=== PATIENT | male | born 1955 | race Caucasian/White ===

== ENCOUNTER 2017-09-06 10:50 | Day surgery (SDC) | payer OTHER ==
[~2017-09-06] VITALS: Ht 172.7 cm; Wt 93.5 kg
[2017-09-06] VITALS (8 sets, daily range): BP systolic 129–186; BP diastolic 71–93; PULSE 60–75; RESP 16–17; TEMP 98.2–99; O2SAT 94–98
[~2017-09-06 10:50] MED LIST: 1-ME1LIQ PO; LISI10TA PO; NAPR500 PO; TERA1 PO
[2017-09-06] MEDS ORDERED: IOHEXOL 350 MG/ML 100 ML BTL (for Cath Lab) OTHER ONE (10:51)
[2017-09-06] MEDS ORDERED: ASPIRIN 81 MG CHEW TAB PO SCH (11:30)
[2017-09-06] MEDS ORDERED: NS 1000P @30 MLS/HR (KVO) IV SCH (11:30)
[2017-09-06] MEDS ORDERED: TERA10CA3 PO (11:40)
[2017-09-06] MEDS ORDERED: MULTTAB27 PO (11:40)
[2017-09-06] MEDS ORDERED: FEXO15TA PO (11:40)
[2017-09-06] MEDS ORDERED: ASPI81TA11 PO (11:40)
[2017-09-06] MEDS ORDERED: LISI20TA3 PO (11:40)
[2017-09-06] MEDS ORDERED: AMLO10 PO (11:40)
[2017-09-06 11:51] LABS: AUTOMATED NEUTROPHIL # 2.9 TH/MM3 (1.8-7.7); BASOPHIL # 0.1 TH/MM3 (0-0.2); BASOPHIL % 1.8 % (0.0-2.0); EOSINOPHIL # 0.2 TH/MM3 (0-0.4); EOSINOPHIL % 2.8 % (0.0-4.0); HEMATOCRIT 44.9 % (39.0-51.0); HEMO FLAGS DIFF FINAL; LYMPH % 24.9 % (9.0-44.0); LYMPHOCYTE # 1.4 TH/MM3 (1.0-4.8); MEAN CELL VOLUME 88.3 FL (80.0-100.0); MEAN CORPUSCULAR HEMOGLOBIN 30.3 PG (27.0-34.0); MEAN CORPUSCULAR HGB CONC 34.3 % (32.0-36.0); MONO % 16.5 % (0.0-8.0); PLATELET COUNT 192 TH/MM3 (150-450); RED BLOOD COUNT 5.08 MIL/MM3 (4.50-5.90); RED CELL DISTRIBUTION WIDTH 13.7 % (11.6-17.2); WHITE BLOOD COUNT 5.4 TH/MM3 (4.0-11.0)
[2017-09-06 11:59] LABS: PROTHROMBIN TIME - PATIENT 11.3 SEC (9.8-11.6)
[2017-09-06 12:11] LABS: BICARBONATE 31.7 MEQ/L (21.0-32.0); POTASSIUM 3.1 MEQ/L (3.5-5.1)
[2017-09-06] MEDS ORDERED: MIDAZOLAM HCL 2 MG/2 ML VIAL ONE (12:21)
[2017-09-06] MEDS ORDERED: HEPARIN SODIUM - IV 10,000 UNITS/10 ML VIAL ONE (12:54)
[2017-09-06] MEDS ORDERED: CLOPIDOGREL 300 MG TAB ONE (13:05)
[2017-09-06] MEDS ORDERED: TIROFIBAN INFUSION INJ 250 ML IV ONE (13:06)
[2017-09-06] MEDS ORDERED: PRASUGREL 10 MG TAB ONE (13:12)
--- NOTE | 2017-09-06 13:27 | CATHPROC ---
[facility] HIS Report Study Information Study Number Admission Scheduled Start Study Start [id number] Sep 06 2017 10:50AM 09/06/2017 Sep 06 2017 12:15PM [place] [facility]iac Catheterization Admit Source Facility Department Other [facility] - Regional Marketing Manager Physician and Clinical Staff Initial Raul Lomeli Boilermaker Helper Kya Palencia BSRN Other cathlab, cathlab Recorder Deepa Groves,RN Recorder Minoo Little,RT(R) ScrCarol Hilario,RT(R) TECH2 Procedures Performed Procedure Location (Site) Vessel Name Coronary Angiograms LCA Left Coronary Coronary Angiograms RCA Right Coronary L Heart Cath LV Gram-hand inj. LV LV Ventricle Stent OM1 Prox CIRC Wire insertion Fem Art (right) Femoral Art Equipment Time Day Habilitation Supervisor Description Size Mfg Part Number Used/Scraped [id number] 12:55 [employer] WIRE, ASAHI PROWATER 180CM 180CM Used *[id number] TRANSDUCER, TRUWAVE [id number] 12:24 LEMUS CABAN * Used W/STOCKCOCK *[id number] [id number] *[id number] [id number] *[id number] *[id number] 12:24 MEDLINE [employer] PACK, CCL CUSTOM * Used *[id number] 12:24 [facility] PACER PEN, SKIN DUAL W/ RULER * Used *[id number] 13:01 MEDTRONIC BALLOON, 2.5 X 10MM EUPHORA 10MM Used *[id number] 13:04 MEDTRONIC STENT, 2.5 18 INTEGRITY 2.5 18 Used *[id number] 13:06 [employer] MEDICAL 30 NAZARIO INDEFLATOR Used *[id number] 12:56 [employer] MEDICAL SHEATH, FR6.5 PRELUDE 11CM FR 6.5 038ACT Used *[id number] 12:24 [employer] MEDICAL WIRE, 3MMJ .035 180CM 180CM Used *[id number] 12:24 NAMIC MANIFOLD, 4 PORT * Used *[id number] 12:24 [employer]COMED OMNIPAQUE, 350 MG, 150ML 150ML [id number] Used [id number] 12:24 [employer] BLANKET,WARM AIR CCL * Used *[id number] 12:24 TERUMO MEDICAL SHEATH, FR4 TERUMO (10CM) FR 4 Used *[id number] Equipment Model, Serial, Lot Number and Expiration Data Description Model Number Serial Number Lot Number Expiration Date STENT, 2.5 18 INTEGRITY [id number] 05-03-2019 History: Current Medications Medication Dosage/Unit Route Frequency Last Date/Time Taken NORVASC 10 mg Oral LISINOPRIL 20 mg Oral ASA 81 mg Oral History: Allergies Allergy Reaction No Known Allergies History: Risk Factors Family History of Hypertension Dyslipidemia Previous WI Previous Heart Failure Premature CAD Yes No Yes No No Prior Valve Prior PCI Prior CABG Surgery No No No Cerebrovascular Peripheral Artery Chronic Lung On Dialysis Diabetes Disease Disease Disease No No No No No History: Symptoms/Diagnosis Selection Items Chest pain History: Stress Tests Stress or Imaging Studies Performed Yes Standard Exercise Stress Test No Stress Echo No Stress Test SPECT Stress Test SPECT Result Stress Test SPECT Ischemia Risk/Extent Yes Positive Intermediate Stress Test CMR No Cardiac CTA Coronary Calcium Score No No History: Other Disease Selection Items Cancer HTN History: Other Current Smoker No Regular Diet Yes Labs Hgb (g/dl) Hct (%) WBC (l/cumm) Platelets (thousands) 11.60-17.00 35.00-51.00 4.00-11.00 150.00-450.00 15.4 44.9 5.4 192 Glucose (mg/dl) BUN (mg/dl) Creatinine (mg/dl) BUN:Creatinine (1:x) 74.00-106.00 7.00-18.00 0.50-1.30 10.00-20.00 117 8 0.9 8.9 Na (meq/l) K (meq/l) 136.00-145.00 3.50-5.10 138 3.1 INR (PTT:PT) 0.90-1.10 1 Troponin I (ng/ml) CPK-MB (ng/ML) 0.02-0.05 0.50-3.60 0.01 Not Drawn Medication Medication Total Dose (Bolus/Oral) Medication Total Dosage/Unit 1% XYLOCAINE 20 mL AGGRASTAT BOLUS 46.2 mL EFFIENT 60 mg HEPARIN 6500 units VERSED 1 mg Medications (Bolus/Oral) Medication Time Given Dosage/Unit Administered By Reason 09/06/2017 12:47:16 VERSED 1 mg Kya Palencia PM 1 mg VERSED given in lab by Kya Palencia BSRN in Left Antecubital via Peripheral IV. Ordered by Raul Giang. 09/06/2017 12:47:59 1% XYLOCAINE 20 mL Raul Giang PM 20 mL 1% XYLOCAINE given in lab by Raul Giang in Right Groin via Subcutaneous. 09/06/2017 12:56:41 HEPARIN 6500 units Kya Palencia PM 6500 units HEPARIN given in lab by Kya Palencia BSRN in Left Antecubital via Peripheral IV. Orde red by Raul Giang. AGGRASTAT BOLUS 09/06/2017 1:11:08 PM 46.2 mL Kya Palencia 46.2 mL AGGRASTAT BOLUS given in lab by Kya Palencia BSRN in Left Antecubital via Peripheral IV. Ordered by Raul Giang. EFFIENT 09/06/2017 1:16:43 PM 60 mg Kya Palencia 60 mg EFFIENT given in lab by Kya Palencia BSRN via Oral. Ordered by Raul Giang. Medication (Drip) Medication Time Given Dosage/Unit Concentration/Unit Diluent (ml) Solutio n AGGRASTAT DRIP 09/06/2017 1:15:36 PM 0.15 mcg/kg/min 12.5 mg 250 NaCl .9 0.15 mcg/kg/min AGGRASTAT DRIP given in lab by Kya Palencia BSRN in Left Antecubital via Periphe ral IV. Pump/Drip Flow = 16.6 ml/hr using NaCl .9 with a concentration of 12.5 mg in 250 ml. Ordered by Raul Giang. 09/06/2017 12:19:18 IV Solutions 0 mL (IV) 500 NaCl .9 PM Patient arrived on IV Solutions given by cathvictoriano cathvictoriano in Left Antecubital via Peripheral IV. Pump /Drip Flow = 20 ml/hr using NaCl .9. Ordered by Raul Giang. Initial Case Assessment Cardiovascular HR Rhythm NIBP Chest Pain 60 mayank 161/101 0 Edema Present Skin color Skin None Normal Warm Dry Circulatory - Right Pulses Dorsalis Pedis Posterior Tibial Femoral 2 2 3 Scale (0,1,2,3,4,d) Circulatory - Left Pulses Dorsalis Pedis Posterior Tibial Femoral 2 2 3 Scale (0,1,2,3,4,d) Circulatory - Lower Extremities Color Lower Right Color Lower Left Normal Normal Neurological State Oriented to time-place- Alert Moves all extremities person Respiration - General Respiration Rate SpO2 (%) (B/min) 14 99 Chronological Log Time Study Chronological Log 12:15:13 Patient arrived via Bed. 12:15:14 Patient Name, D.O.B, / Armband Verified By R.N. 12:15:15 Consent signed by the physician and the patient and verified by the Regional Marketing Manager staff. 12:19:10 Pre-op and post- op instructions given; patient acknowledges understanding of instructions. 12:19:11 Patient has been NPO for More than 6Hrs. 12:19:12 Skin Breakdown- mome per pt 12:19:15 Dea Prominences Protected 12:19:18 A # 20 IV was noted in the Antecubital (left). Grade = 0 0.9NS at KVO infusing Patient arrived on IV Solutions given by cathlab, cathlab in Left Antecubital via Peripheral IV . Pump/Drip Flow = 20 12:19:18 ml/hr using NaCl .9. Ordered by Raul Giang. 12:19:19 History and physical on the chart or being dictated. Vitals capture started with the following parameters, Patient=Adult, Interval=5 min, Initial Pr ubmzyd=300 mmHg, 12:19:51 Deflation Rate=5 mmHg, Cuff placed on Left Arm 12:20:28 HR=69 bpm, RCDP=711/101 mmhg, SpO2=99.0 %, Resp=14 B/min, Pain=0, Lobo=10, Wolff=2 Assessment: Initial Case, HR=60 BPM, Rhythm=mayank, AHUB=079/101 mmhg, Chest Pain=0, Edema=None, Color=Normal, Skin = Warm, Dry Right Pulses: Gonzales Ped=2, Post Tib=2, Femoral=3 Left Pulses: Gonzales Ped=2, Post Tib=2, Femoral=3 12:21:19 Lower Right Extremities: Color=Normal Lower Left Extremities: Color=Normal Neurological: State=Alert, Ox3, YEN Respiration: Resp=14 B/min, SpO2=99 % 12:22:00 Reference ECG taken 12:23:18 Verbal Stimulation=2 Physical Stimulation=2 Airway=2 Respiration=2 TOTAL=8. (0=absent, 1=li mited, 2=present) 12:24:58 Bilateral groins prepped with 2% chlorhexidine, and draped after a 3 minute waiting time. 12:26:06 HR=64 bpm, DXKF=721/93 mmhg, SpO2=97.0 %, Resp=9 B/min, Pain=0, Lobo=10, Wolff=2 12:30:33 HR=73 bpm, DEYR=733/99 mmhg, SpO2=98.0 %, Resp=15 B/min, Pain=0, Lobo=10, Wolff=2 12:35:36 HR=64 bpm, KVAN=896/90 mmhg, SpO2=98.0 %, Resp=13 B/min, Pain=0, Lobo=10, Wolff=2 12:36:08 Pressure channel 1 zeroed. 12:40:35 HR=61 bpm, KTAA=998/88 mmhg, SpO2=97.0 %, Resp=8 B/min 12:44:00 MD arrived. 12:45:34 HR=59 bpm, EYGK=065/95 mmhg, SpO2=98.0 %, Resp=10 B/min Time Out. Correct patient, correct procedure, correct physician, power injector loaded, or not loaded with contrast with 12:47:02 surgical team present. Time Out Concurred by MD and individual staff in procedure. 1 mg VERSED given in lab by Kya Palencia BSRN in Left Antecubital via Peripheral IV. Order ed by Padmaja, 12:47:16 Raul. 12:47:57 Case Start 12:47:59 20 mL 1% XYLOCAINE given in lab by Raul Giang in Right Groin via Subcutaneous. 12:48:30 Access site was Right Femoral Artery. 12:48:38 A SHEATH, FR4 TERUMO (10CM) FR 4 was advanced into the Fem Art (right) using the Percutaneo us technique. A JR 4.0 INFINITI CATHETER FR 4 was advanced over a wire. OMNIPAQUE, 350 MG, 150ML 150ML was us ed for 12:49:00 injections. Recorded Pressure: LV, HR=63, Condition=Condition 1 12:49:47 (Left Ventricle) LV 154/6/17 12:50:00 The LV was manually injected with 6 cc's and visualized. OMNIPAQUE, 350 MG, 150ML 150ML use d. Recorded Pressure: LV, Ao, HR=63, Condition=Condition 1 12:50:04 (Left Ventricle) LV 153/8/17, (Aorta) Ao 155/81/112 12:50:37 HR=62 bpm, UULP=967/85 mmhg, SpO2=97.0 %, Resp=8 B/min 12:50:57 The RCA was injected and visualized at various angles. OMNIPAQUE, 350 MG, 150ML 150ML used . 12:51:16 Catheter was removed A JL 4.0 INFINITI CATHETER FR 4 was advanced over a wire. OMNIPAQUE, 350 MG, 150ML 150ML was us ed for 12:51:18 injections. 12:52:18 The LCA was injected and visualized at various angles. OMNIPAQUE, 350 MG, 150ML 150ML used . 12:54:55 Catheter was removed 12:55:34 HR=67 bpm, YPNL=409/104 mmhg, SpO2=95.0 %, Resp=9 B/min 6500 units HEPARIN given in lab by Kya Palenica BSRN in Left Antecubital via Peripheral IV . Ordered by Padmaja, 12:56:41 Raul. A SHEATH, FR6.5 PRELUDE 11CM FR 6.5 was exchanged in the Fem Art (right). This was necessary in order to 12:57:00 accomodate a larger catheter. A XB 4.0 GUIDE CATHETER FR 6 was advanced over a wire. OMNIPAQUE, 350 MG, 150ML 150ML was used for 12:58:09 injections. 13:00:44 A WIRE, ASAHI PROWATER 180CM 180CM was inserted via Fem Art (right). 13:01:08 HR=65 bpm, SAKX=668/93 mmhg, SpO2=96.0 %, Resp=8 B/min 13:01:08 Interventional wire has crossed the lesion Recorded Pressure: Ao, HR=68, Condition=Condition 1 13:01:37 (Aorta) Ao 154/82/112 A BALLOON, 2.5 X 10MM EUPHORA 10MM was inserted over WIRE, ASAHI PROWATER 180CM 180CM via the F em Art 13:01:55 (right). 13:03:00 Activated Clotting Time Drawn 13:03:35 Balloon Removed, not inflated. An STENT, 2.5 18 INTEGRITY 2.5 18 Bare Metal Stent was inserted through a XB 4.0 GUIDE CATHETER FR 6 over a 13:04:27 WIRE, [employer] PROWATER 180CM 180CM. 13:05:36 HR=65 bpm, UDAE=221/90 mmhg, SpO2=95.0 %, Resp=9 B/min A STENT, 2.5 18 INTEGRITY 2.5 18 was deployed using a 30 NAZARIO INDEFLATOR at 10 atmospheres for 2 2 seconds in 13:05:49 the OM1 Prox. 13:07:24 Delivery device removed 13:07:59 Wire removed 13:08:03 Catheter was removed 13:08:29 ACT (Normal Range 90-180) = 307 13:08:54 Case End 13:10:41 HR=63 bpm, FNQC=456/89 mmhg, SpO2=97.0 %, Resp=7 B/min 46.2 mL AGGRASTAT BOLUS given in lab by Kya Palencia BSRN in Left Antecubital via Peripher al IV. Ordered by 13:11:08 Raul Giang. 13:14:42 In the Fem Art (right) the SHEATH, FR6.5 PRELUDE 11CM FR 6.[address] by Raul Tejada. 13:15:05 Sterile dressing applied to site 13:15:06 No case complications noted. 13:15:07 Cine recording checked. 13:15:11 Bedside Report will be given. 13:15:13 Implantable Device card placed in patient's chart. 13:15:15 Contrast Scanned 13:15:16 A Left Heart Cath was performed. 0.15 mcg/kg/min AGGRASTAT DRIP given in lab by Kya Palencia BSRN in Left Antecubital via P eripheral IV. 13:15:36 Pump/Drip Flow = 16.6 ml/hr using NaCl .9 with a concentration of 12.5 mg in 250 ml. Ordered by Raul Giang. 13:15:36 HR=58 bpm, RRAZ=373/92 mmhg, SpO2=97.0 %, Resp=7 B/min 13:16:43 60 mg EFFIENT given in lab by Kya Palencia BSRN via Oral. Ordered by Raul Giang. 13:20:37 AKZX=180/96 mmhg 13:21:36 Vitals capture stopped. 13:23:00 Patient moved to stretcher End Study - Contrast Media Used In Study Contrast Total Opened (mL) Total Used (mL) Total Wasted (mL) Omnipaque 90 0 90 End Study - Maximum Contrast Load Max Contrast Load (mL) 513.4 End Study - Radiation Exposure Fluoro Time (minutes) 4.3 End Study - Patient Disposition Complications Transferred To Interventional Outcome No Telemetry Bed successful
[2017-09-06] MEDS ORDERED: HEPARIN-NS/PF INJ 500 ML ONE (13:34)
[2017-09-06] MEDS ORDERED: TIROFIBAN INFUSION INJ 250 ML IV SCH (13:43)
[2017-09-06] MEDS ORDERED: MISC INFORMATION XX ONE (13:45)
[2017-09-06] MEDS ORDERED: PRASUGREL 10 MG TAB PO ONE (13:45)
[2017-09-06] MEDS ORDERED: SODIUM CHLORIDE 0.9% FLUSH 10 ML FLUSH IV FLUSH PRN (13:45)
--- NOTE | 2017-09-06 14:17 | MA ---
cc: JACE BEARD M.D. DATE: 09/06/2017 PROCEDURE PERFORMED Left heart catheterization, coronary angiography, left ventriculography, PCI bare metal stent of the proximal mid second obtuse marginal vessel. INDICATION Unstable angina, acute coronary syndrome, coronary artery disease, moderate size reversible defect in the lateral wall, culprit occluded proximal second obtuse marginal vessel. PROCEDURE The patient was brought to the cardiac catheterization lab, prepped and draped in the usual sterile fashion. 10 ccs of 1% lidocaine was used to locally anesthetize the right common femoral artery. A 6-Ghanaian sheath was successfully placed in the right common femoral artery. A 4-Ghanaian JR-4, JL-4 catheter were used to perform left and right coronary angiography, left ventriculography. FINDINGS LV pressure is 150/10-11, EF 55%, right coronary artery is large and dominant, has mild diffuse disease in the proximal mid and distal segment up to 30% angiographically, probably at least a 4.5 mm diameter vessel in the proximal and mid segment. The right PDA has an ostial bifurcation. The more medial branch has mild ostial proximal disease up to 10-20% angiographically. The more lateral branch has mild to moderate ostial proximal disease up to 30-40% angiographically. The right posterolateral artery is a large vessel probably 3-1/2 mm in diameter in the proximal segment, it reaches the apex, has mild disease in the midsegment up to 10-20% angiographically. Left main coronary artery has no significant disease angiographically. Left circumflex vessel has moderate diffuse disease in the [id number]-kh-nbywkq segment up to 50-60% angiographically. There is a small first obtuse marginal vessel which is probably 0.5 mm in diameter, no significant disease angiographically. Second obtuse marginal vessel is occluded in the proximal segment with GRANT I flow, slight dye staining maybe 1-2 mm beyond the stenotic margin. Third obtuse marginal vessel is a small to medium size vessel with proximal bifurcation, mild diffuse disease in the ostial proximal segment up to 10% angiographically. There is a large ramus intermedius vessel approaching the apex with mild diffuse disease in the midsegment up to 20% angiographically. The LAD is transapical, has mild disease in the ostial proximal segment up to 20% angiographically. 6-Ghanaian sheath was exchanged for a 4-Ghanaian sheath. 70 units per kilo of heparin was given, ACT was 308. A 6-Ghanaian XB 4.0 guide 0.014 Prowater guidewire was used to approach the second obtuse marginal vessel stenosis, with slight forward pressure I was able to cross the lesion and place the wire tip into the distal obtuse marginal vessel. There is slightly increased perfusion, still GRANT I flow may be another 10 mm distal to the stenotic margin. I then used a 2.5 10 Euphora balloon ___ the vessel. This resulted in re-establishment of flow throughout the entire length of the vessel, GRANT II to III with residual 95% stenosis in the proximal mid segment and then directly stented the lesion with a [id number] integrity stent, one inflation, initially up to 9 atmospheres. However, there was significant under-deployment of the proximal mid stent. I then deployed the stent to 10 atmospheres, still with slightly suboptimal deployment in the proximal segment, did not want to be more aggressive in the stent deployment. I did not want to be overly aggressive with the balloon inflation pressure due to significant tapering of the mid to distal vessel and concern for over dilating the mid to distal vessel. Stenosis went from 100% with GRANT I flow to 0% with GRANT-III flow. Also note that during balloon inflation, vessel occlusion, this did reproduce the patient's chest pain that he had prior to the procedure. CONCLUSION 1. Unstable angina, acute coronary syndrome. [place] Cardiovascular Society Class III angina, moderate-sized reversible defect in the lateral wall, culprit occluded proximal second obtuse marginal vessel as detailed above. 2. Mild to moderate three-vessel coronary artery disease and right-dominant system. 3. Normal LV systolic function, ejection fraction 55%. 4. Successful PCI with bare metal stent of the proximal second obtuse marginal vessel from 100% with GRANT I flow to 0% with GRANT-III flow. RECOMMENDATIONS 1. Effient 60 mg p.o. load, then 10 mg daily for 12-15 months, aspirin 162 mg daily. Note, I used Effient as the patient technically met criteria for ACS with thrombotic occlusion of the second obtuse marginal vessel. 2. I strongly recommended statin to the patient. The patient still is declining statin. I have explained to him that his risk for recurrent event is high given his mild to moderate three-vessel coronary artery disease and occluded vessel as detailed above. Again, he remains undecided. MD MOHIT Pritchett/WILY /1:16 PM /1:29 PM
[2017-09-06] MEDS ORDERED: POTASSIUM CHLORIDE 20 MEQ CONTROLLED RELEASE TAB PO ONE (20:15)
[2017-09-06] MEDS ORDERED: ZOLPIDEM TARTRATE 5 MG TAB PO PRN (20:15)
[2017-09-06] MEDS ORDERED: TERAZOSIN HCL 5 MG CAP PO SCH (21:00)
[2017-09-06] MEDS: SODIUM CHLORIDE 0.9% FLUSH 10 ML FLUSH IV FLUSH SCH (21:00)
[2017-09-06] MEDS ORDERED: ATORVASTATIN 10 MG TAB PO SCH (21:00)
[2017-09-06] MEDS ORDERED: LORATADINE 10 MG TAB PO SCH (21:00)
[2017-09-06] MEDS: CARVEDILOL 3.125 MG TAB PO SCH (21:49)
[2017-09-07] VITALS (12 sets, daily range): BP systolic 146–148; BP diastolic 78–85; PULSE 60–74; RESP 17; TEMP 98–98.3; O2SAT 94–97
[2017-09-07 04:49] LABS: AUTOMATED NEUTROPHIL # 4.6 TH/MM3 (1.8-7.7); BASOPHIL # 0.1 TH/MM3 (0-0.2); BASOPHIL % 1.1 % (0.0-2.0); EOSINOPHIL # 0.2 TH/MM3 (0-0.4); EOSINOPHIL % 3.1 % (0.0-4.0); HEMATOCRIT 43.4 % (39.0-51.0); HEMO FLAGS DIFF FINAL; LYMPH % 16.6 % (9.0-44.0); LYMPHOCYTE # 1.2 TH/MM3 (1.0-4.8); MEAN CELL VOLUME 87.4 FL (80.0-100.0); MEAN CORPUSCULAR HEMOGLOBIN 30.5 PG (27.0-34.0); MEAN CORPUSCULAR HGB CONC 34.9 % (32.0-36.0); MONO % 14.3 % (0.0-8.0); NEUT % 64.9 % (16.0-70.0); PLATELET COUNT 190 TH/MM3 (150-450); RED BLOOD COUNT 4.97 MIL/MM3 (4.50-5.90); WHITE BLOOD COUNT 7.2 TH/MM3 (4.0-11.0)
[2017-09-07 05:03] LABS: BICARBONATE 28.3 MEQ/L (21.0-32.0); POTASSIUM 3.2 MEQ/L (3.5-5.1)
[2017-09-07 05:06] LABS: HDL CHOLESTEROL 45.2 MG/DL (40.0-60.0)
[2017-09-07] MEDS: SODIUM CHLORIDE 0.9% FLUSH 10 ML FLUSH IV FLUSH SCH (09:00)
[2017-09-07] MEDS ORDERED: HYDROCHLOROTHIAZIDE 25 MG TAB PO SCH (09:00)
[2017-09-07] MEDS ORDERED: PRASUGREL 10 MG TAB PO SCH (09:00)
[2017-09-07] MEDS ORDERED: LISINOPRIL 20 MG TAB PO SCH (09:00)
[2017-09-07] MEDS ORDERED: ASPIRIN 81 MG CHEW TAB PO SCH (09:00)
[2017-09-07] MEDS ORDERED: MULTIVITAMIN TAB PO SCH (09:00)
[2017-09-07] MEDS ORDERED: RAMIPRIL 2.5 MG CAP PO SCH (09:00)
[2017-09-07] MEDS: CARVEDILOL 3.125 MG TAB PO SCH (09:26)
[2017-09-07] MEDS ORDERED: ASPI81CH CHEW (09:38)
[2017-09-07] MEDS ORDERED: PRAS10TA PO (09:38)
[2017-09-07] MEDS ORDERED: POTASSIUM CHLORIDE 20 MEQ CONTROLLED RELEASE TAB PO ONE (10:00)
--- NOTE | 2017-09-07 22:02 | EKG ---
Date Performed: 09/06/2017 Time Performed: 16:33:30 PTAGE: 62 years EKG: --- Warning: Data quality may affect interpretation --- Sinus rhythm with PAC(s). Lead(s) unsuitable for analysis: V6 Borderline ECG PREVIOUS TRACING : 09/06/2017 11.40 Compared to prior tracing no significant change DOCTOR: Amadeo Lowery Interpretating Date/Time 09/07/2017 21:33:46
--- NOTE | 2017-09-07 22:03 | EKG ---
Date Performed: 09/06/2017 Time Performed: 11:40:40 PTAGE: 62 years EKG: Sinus bradycardia with sinus arrhythmia. Normal ECG except for rate PREVIOUS TRACING : 02/05/2012 09.25 Compared to prior tracing no significant change DOCTOR: Amadeo Lowery Interpretating Date/Time 09/07/2017 21:43:11
--- NOTE | 2017-09-07 23:11 | EKG ---
Date Performed: 09/07/2017 Time Performed: 05:50:16 PTAGE: 62 years EKG: Sinus arrhythmia. Normal ECG PREVIOUS TRACING : 09/06/2017 16.33 Compared to prior tracing no significant change DOCTOR: Amadeo Lowery Interpretating Date/Time 09/07/2017 23:11:04
== END 2017-09-07 11:00 | disposition home or self-care (01) ==
LOC: HDOC 10:50 → HDIC 10:51 → HCPC 18:40 → HDOC 09-07 11:00
PROVIDERS: ATTEND Internal Medicine Interventional Cardiology
DX: I25.110 Atherosclerotic heart disease of native coronary artery with unstable angina pectoris (principal); I10 Essential (primary) hypertension; Z79.01 Long term (current) use of anticoagulants
CPT/HCPCS: 80048; 80061; 82550; 85002; 85025; 85610; 85730; 92928; 93005; 93458; C1725; C1769; C1876; C1887; C1893; J1644; J2250; J3246; J7030; Q9967